=== PATIENT | male | born 1990 | race African-American/Black ===

== ENCOUNTER 2017-09-29 01:42 | Emergency (ER) | payer OTHER ==
[~2017-09-29] VITALS: Ht 172.7 cm; Wt 108.9 kg
[~2017-09-29 01:42] MED LIST: DOXYCYCLINE 10100 MG PO; PROCHAMBER1 EACH; ZOFRAN ODT4 MG PO
[2017-09-29] MEDS ORDERED: AMOXICILLIN500 M1 PO (02:35)
[2017-09-29] MEDS ORDERED: PREDNISONE 20 M20 MG PO (02:35)
== END 2017-09-29 03:05 | disposition home or self-care (01) ==
LOC: ER 01:42
DX: J02.0 Streptococcal pharyngitis (principal)